=== PATIENT | male | born 1985 | race Caucasian/White ===

== ENCOUNTER 2020-06-07 07:20 | Inpatient (IN) | payer MEDICAID, OTHER ==
[~2020-06-07] VITALS: Ht 170.2 cm; Wt 68.2 kg
[2020-06-07] VITALS (16 sets, daily range): BP systolic 111–158; BP diastolic 61–89
[2020-06-07 08:02] LABS: BASOPHILS # (AUTO) 0.1 X10'3 (0-0.2); BASOPHILS % (AUTO) 0.6 % (0-1); EOSINOPHILS # (AUTO) 0.2 X10'3 (0-0.9); HEMATOCRIT 43.3 % (42.0-52.0); HEMOGLOBIN 15.1 g/dl (14.0-17.9); LYMPHOCYTES # (AUTO) 2.5 X10'3 (1.1-4.8); LYMPHOCYTES % (AUTO) 24.6 % (21-51); MEAN CORPUSCULAR HEMOGLOBIN 33.5 PG (27.0-31.0); MEAN CORPUSCULAR HGB CONC 34.9 g/dL (33.0-36.5); MEAN CORPUSCULAR VOLUME 95.9 FL (78-98); MEAN PLATELET VOLUME 7.7 FL (7.4-10.4); MONOCYTES # (AUTO) 0.9 X10'3 (0-0.9); MONOCYTES % (AUTO) 8.9 % (2-12); NEUTROPHILS # (AUTO) 6.5 X10'3 (1.8-7.7); NEUTROPHILS % (AUTO) 63.9 % (42-75); PLATELET COUNT 315 X10'3 (140-440); RED BLOOD COUNT 4.52 X10'6 (4.70-6.10); RED CELL DISTRIBUTION WIDTH 13.1 % (11.5-14.5); WHITE BLOOD COUNT 10.2 X10'3 (4.5-11.0)
[2020-06-07] MEDS ORDERED: ondansetron/PF 4mg/2ml inj IV ONE (08:05)
[2020-06-07] MEDS ORDERED: normal saline 1000ML IV soln IVB ONE (08:05)
[2020-06-07 08:16] LABS: ALANINE AMINOTRANSFERASE 35 U/L (12-78); ALBUMIN 3.8 G/DL (3.4-5.0); ALKALINE PHOSPHATASE 98 IU/L (46-116); ANION GAP 9 (8-16); ASPARTATE AMINO TRANSFERASE 16 U/L (10-37); BILIRUBIN,TOTAL 0.3 MG/DL (0.1-1.0); BLOOD UREA NITROGEN 14 MG/DL (7-18); BUN/CREATININE RATIO 15.2 (5.4-32.0); CHLORIDE 105 MMOL/L (99-107); CREATININE 0.92 MG/DL (0.60-1.10); GLUCOSE 115 MG/DL (70-104); LIPASE 144 U/L (73-393); POTASSIUM 4.3 MMOL/L (3.5-5.1); SODIUM 139 MMOL/L (135-145); TOTAL CARBON DIOXIDE 25.4 MMOL/L (24-32); TOTAL PROTEIN 7.8 G/DL (6.4-8.2); eGFR > 90 ML/MIN
[2020-06-07 08:20] LABS: CALCIUM 9.2 MG/DL (8.5-10.1)
[2020-06-07] MEDS: morphine 4 MG/ML inj SYRINge IV PRN ×2 (08:41→11:14)
--- NOTE | 2020-06-07 09:03 | NUR ---
TO CT SCAN VIA WHEELCHAIR IN STABLE CONDITION.
[2020-06-07 09:22] LABS: CLARITY,URINE CLEAR (Clear); COLOR,URINE YELLOW (Yellow); GLUCOSE, URINE NEGATIVE (Neg); KETONES,URINE NEGATIVE (Neg); LEUKOCYTE ESTERASE ,URINE NEGATIVE (Neg); NITRITES, URINE NEGATIVE (Neg); OCCULT BLOOD,URINE NEGATIVE (Neg); PH,URINE 8.5 (4.8-8.0); PROTEIN,URINE NEGATIVE (Neg); UROBILINOGEN,URINE 0.2 E.U/dL (0.2-1.0)
[2020-06-07 09:27] LABS: UA COLLECTION TYPE CLN CATCH MIDSTREAM
[2020-06-07] MEDS ORDERED: nicotine 21mg patch - 24 hr TD ONE (09:45)
[2020-06-07] MEDS ORDERED: LORazepam 2 mg/ml vial IV ONE (09:45)
--- NOTE | 2020-06-07 09:56 | NUR ---
recevied call from operating room ,pt is going for sx at 1300 or 1400 ,surgeon dr dhillon.
[2020-06-07] MEDS ORDERED: ringers solution, lacted 1,000 ML IV ONE (10:05)
[2020-06-07] MEDS ORDERED: potassium CL 10mEq/100ml bag 100 ML IV PRN ×2 (10:10)
[2020-06-07] MEDS ORDERED: magnesium Cl slow-release 64mg tablet PO PRN (10:10)
[2020-06-07] MEDS ORDERED: acetaminophen 325mg tablet PO PRN (10:10)
[2020-06-07] MEDS ORDERED: magnesium 4gm in 100ml NS 100 ML IV PRN (10:10)
[2020-06-07] MEDS ORDERED: potassium Cl 20 mEq SR tablet PO PRN ×2 (10:10)
[2020-06-07] MEDS ORDERED: ondansetron/PF 4mg/2ml inj IV PRN ×3 (10:10→14:30)
[2020-06-07] MEDS ORDERED: magnesium 2GM in 50ml NS 50 ML IV PRN (10:10)
--- NOTE | 2020-06-07 11:12 | NUR ---
pt ate last at 209906-06-20
[2020-06-07 11:30] LABS: H PYLORI ANTIBODY NEGATIVE (Neg)
--- NOTE | 2020-06-07 11:55 | NUR ---
romana rn spoke to [facility] pharmacist to clarify the iv compattability of ciprofloxacin and lactate ringer as per [facility] pharmacist they are compatable.
--- NOTE | 2020-06-07 12:15 | NUR ---
received report from FACUNDO Velasco. awaiting patient arrival.
[2020-06-07] MEDS ORDERED: PANT40TA54 PO (12:25)
[2020-06-07] MEDS ORDERED: IBUP-1985 PO (12:25)
[2020-06-07] MEDS ORDERED: metroNIDAZOLE-Flagyl 500mg/NS 100 ML IV ONE (12:30)
[2020-06-07] MEDS ORDERED: ciprofloxacin lact 400MG/200ML 200 ML IV ONE (12:31)
--- NOTE | 2020-06-07 12:41 | NUR ---
patient arrived to the floor. no complaints. patient getting in shower now.
[2020-06-07] MEDS: normal saline 1000ml 1,000 ML IV SCH ×2 (12:48→18:18)
[2020-06-07] MEDS ORDERED: morphine 2 MG/ML inj. syringe IV PRN ×3 (13:00→17:50)
[2020-06-07] MEDS ORDERED: ringers solution, lacted 1,000 ML IV SCH ×2 (13:00→14:30)
[2020-06-07] MEDS ORDERED: proCHLORperazine 10 MG/2 ml inj IV PRN ×2 (13:00→14:30)
[2020-06-07] MEDS ORDERED: morphine 4 MG/ML inj SYRINge IV PRN ×2 (13:00→14:30)
[2020-06-07] MEDS ORDERED: meperidine/PF 25mg/ml syringe IV PRN ×6 (13:00→14:30)
[2020-06-07] MEDS: morphine 2 MG/ML inj. syringe IV PRN ×2 (13:13→17:21)
--- NOTE | 2020-06-07 14:05 | NUR ---
Report given to FACUNDO Guevara in [facility], who will perform accucheck upon pt's arrival preop. FACUNDO Craig notified.
[2020-06-07] MEDS ORDERED: glycopyrrolate 0.2mg/ml inj ONE (14:22)
[2020-06-07] MEDS ORDERED: dexamethasone sod phosphate 10mg/ml inj ONE (14:22)
[2020-06-07] MEDS ORDERED: BUPIVAcaine/PF 2.5 mg/ml (0.25%) 30ml vial ONE (14:22)
[2020-06-07] MEDS ORDERED: LIDOcaine 1% 30ml preserv. free vial ONE (14:22)
[2020-06-07] MEDS ORDERED: neostigmine methylsulfate 1 MG/ML 10ml vial ONE (14:22)
[2020-06-07] MEDS ORDERED: ondansetron/PF 4mg/2ml inj ONE (14:22)
[2020-06-07] MEDS ORDERED: sevoflurane 250ml liquid IH ONE (14:22)
[2020-06-07] MEDS ORDERED: fentaNYL /PF 50mcg/ml 5ml ampule ONE (14:30)
[2020-06-07] MEDS ORDERED: midazolam 2 mg/2 ml injection ONE (14:30)
[2020-06-07] MEDS ORDERED: rocuronium 10mg/ml inj IV ONE (14:39)
[2020-06-07] MEDS ORDERED: propofol inj 20 ML IV ONE (14:39)
[2020-06-07] MEDS ORDERED: ketorolac trometh. 30mg/ml inj. ONE (14:39)
[2020-06-07] MEDS ORDERED: LIDOcaine 2% (20mg/ml) 5ml vial ONE (14:40)
--- NOTE | 2020-06-07 15:24 | NUR ---
Received from OR via [facility] , accompanied by Anesthesiologist NIDHI and report given by Anesthesiolgist. PATIENT WITH 22G PIV IN RIGHT UE RUNNING LR AT 100. DENIES PAIN. 3 ABDOMINAL LAP SITES PRESENT THAT ARE ALL CDI. Addendum: 06/07/20 at 1534 by Jonathan Galeano RN, RN Amended: Links added.
[2020-06-07] MEDS ORDERED: magnesium hydroxide 30ml (MOM) UD suspension PO ONE (15:35)
--- NOTE | 2020-06-07 16:08 | NUR ---
received report from FACUNDO lamar. awaiting patient arrival.
--- NOTE | 2020-06-07 16:14 | NUR ---
ALL CRITERIA FOR TRANSFER TO THE FLOOR HAS BEEN ACHIEVED. REPORT GIVEN AND ALL QUESTIONS ANSWERED, VSS. BED LOW 2 RAILS UP, CALL LIGHT PRESENT AND PATIENT HOOKED UP TO ALL LINES AND VSS. PATIENTS RN PRESENT TO ACCEPT CARE. FACUNDO SULLIVAN AWARE PATIENT HAS ARRIVED. VSS. DENIES PAIN. PHONE DELIVERED TO ROOM AND HANDED TO PATIENT. Addendum: 06/07/20 at 1625 by Jonathan Ramirez - FACUNDO LOREDO Amended: Links added.
--- NOTE | 2020-06-07 16:15 | NUR ---
patient arrived to floor. VSS. no complaints. Addendum: 06/07/20 at 1635 by Kiara Camacho RN lap sites with bandaids. CDI.
--- NOTE | 2020-06-07 18:21 | NUR ---
Problems reprioritized. Patient report given, questions answered & plan of care reviewed with FACUNDO Story.
--- NOTE | 2020-06-07 18:41 | NUR ---
Patient in room [facility]. I have received report from FACUNDO Craig and had the opportunity to ask questions and assume patient care.
[2020-06-07] MEDS: K and/or MAG REPLACEMENT MC SCH (19:29)
[2020-06-07] MEDS: lactobacillus rhamnosus 10,000 MMU CELLS/CAPSULE PO SCH (19:56)
[2020-06-07] MEDS ORDERED: ciprofloxacin lact 400MG/200ML 200 ML IV SCH (20:00)
[2020-06-07] MEDS ORDERED: HYDROcodone/acetaminophen 5mg/325mg tablet PO PRN (21:25)
[2020-06-07] MEDS ORDERED: HYDROcodone/acetaminophen 10/325mg tab PO PRN (21:25)
[2020-06-07] MEDS ORDERED: Melatonin 3mg tablet PO SCH (21:30)
[2020-06-07] MEDS: HYDROmorphone inj. 0.5 MG/0.5 ML DISP.SYRIN IV PRN (22:00)
[2020-06-08] MEDS ORDERED: metroNIDAZOLE-Flagyl 500mg/NS 100 ML IV SCH
[2020-06-08 00:15] VITALS: BP 96/63
[2020-06-08] MEDS ORDERED: Melatonin 3mg tablet PO PRN (04:20)
[2020-06-08 05:00] VITALS: BP 132/82
[2020-06-08] MEDS: normal saline 1000ml 1,000 ML IV SCH (05:23)
[2020-06-08 05:29] LABS: ALBUMIN 3.2 G/DL (3.4-5.0); ANION GAP 6 (8-16); BLOOD UREA NITROGEN 10 MG/DL (7-18); BUN/CREATININE RATIO 13.2 (5.4-32.0); CALCIUM 8.4 MG/DL (8.5-10.1); CHLORIDE 106 MMOL/L (99-107); CREATININE 0.76 MG/DL (0.60-1.10); GLUCOSE 128 MG/DL (70-104); MAGNESIUM 2.3 MG/DL (1.5-2.4); POTASSIUM 4.5 MMOL/L (3.5-5.1); SODIUM 138 MMOL/L (135-145); TOTAL CARBON DIOXIDE 26.3 MMOL/L (24-32); eGFR > 90 ML/MIN
[2020-06-08] MEDS: HYDROmorphone inj. 0.5 MG/0.5 ML DISP.SYRIN IV PRN (05:32)
[2020-06-08 05:40] LABS: BASOPHILS % (AUTO) 0.1 % (0-1); EOSINOPHILS % (AUTO) 0 % (0-6); HEMATOCRIT 41.9 % (42.0-52.0); HEMOGLOBIN 14.1 g/dl (14.0-17.9); LYMPHOCYTES # (AUTO) 1.1 X10'3 (1.1-4.8); LYMPHOCYTES % (AUTO) 8.4 % (21-51); MEAN CORPUSCULAR HEMOGLOBIN 32.8 PG (27.0-31.0); MEAN CORPUSCULAR HGB CONC 33.6 g/dL (33.0-36.5); MEAN CORPUSCULAR VOLUME 97.9 FL (78-98); MEAN PLATELET VOLUME 8.2 FL (7.4-10.4); MONOCYTES # (AUTO) 0.3 X10'3 (0-0.9); MONOCYTES % (AUTO) 2.4 % (2-12); NEUTROPHILS # (AUTO) 12.2 X10'3 (1.8-7.7); NEUTROPHILS % (AUTO) 89.1 % (42-75); PLATELET COUNT 319 X10'3 (140-440); RED BLOOD COUNT 4.28 X10'6 (4.70-6.10); RED CELL DISTRIBUTION WIDTH 13.3 % (11.5-14.5); WHITE BLOOD COUNT 13.7 X10'3 (4.5-11.0)
--- NOTE | 2020-06-08 05:51 | NUR ---
Educate pt regarding importance of ambulation for early recovery after surgery. Pt refuses at this time and states that he is in a lot of pain. Pt agrees to walk later in the morning.
--- NOTE | 2020-06-08 06:50 | NUR ---
Problems reprioritized. Patient report given, questions answered & plan of care reviewed with FACUNDO Craig.
[2020-06-08 07:30] VITALS: BP 97/41
[2020-06-08] MEDS: K and/or MAG REPLACEMENT MC SCH (07:52)
[2020-06-08] MEDS: lactobacillus rhamnosus 10,000 MMU CELLS/CAPSULE PO SCH (07:53)
[2020-06-08] MEDS ORDERED: OXYC-145 PO (08:35)
[2020-06-08] MEDS ORDERED: oxyCODONE/APAP 10/325mg tablet PO ONE (08:40)
--- NOTE | 2020-06-08 09:19 | NUR ---
Patient stable and appropriate for discharge home. IV removed, all belongings taken from room. New prescription called in to pharmacy by 's office. patient is aware of next due doses on all medications. Discharge instructions and education given and reviewed with patient, all questions answered.
[2020-06-08] MEDS ORDERED: Melatonin 3mg tablet PO SCH (21:00)
== END 2020-06-08 09:30 | disposition home or self-care (01) | DRG 234 ==
LOC: ER 07:20 → ED HOLD 10:09 → SUR 3N 12:26
PROVIDERS: ADMIT Internal Medicine; ATTEND Internal Medicine
PROC: 8E0W4CZ Robotic Assisted Procedure of Trunk Region, Percutaneous Endoscopic Approach (ICD-10-PCS; 2020-06-07)
PROC: 0DTJ4ZZ Resection of Appendix, Percutaneous Endoscopic Approach (ICD-10-PCS; principal; 2020-06-07 14:22)
DX: K35.80 Unspecified acute appendicitis (principal); F12.90 Cannabis use, unspecified, uncomplicated; F17.210 Nicotine dependence, cigarettes, uncomplicated; G89.29 Other chronic pain; K59.09 Other constipation; Z87.442 Personal history of urinary calculi; Z88.0 Allergy status to penicillin
CPT/HCPCS: 36415; 74176; 80048; 80053; 81003; 82948; 83690; 83735; 85025; 86677; 87081; 96374; 99285; A4215; A4618; G0378; J0744; J1100; J1170; J1885; J2001; J2060; J2250; J2270; J2405; J2704; J2710; J3010; J3490; J7030; J7120

== ENCOUNTER 2020-06-29 00:21 | Emergency (ER) | payer MEDICAID ==
[~2020-06-29] VITALS: Ht 170.2 cm; Wt 68.2 kg
[~2020-06-29 00:21] MED LIST: IBUP-1985 PO; OXYC-145 PO; PANT40TA54 PO
[2020-06-29] MEDS ORDERED: normal saline 1000ML IV soln IVB ONE (00:45)
[2020-06-29] MEDS ORDERED: ondansetron/PF 4mg/2ml inj IV ONE (00:45)
[2020-06-29] MEDS ORDERED: iohexol 300mg/ml 100ml inj. ONE (01:01)
[2020-06-29] MEDS: morphine 4 MG/ML inj SYRINge IV PRN ×2 (01:21→01:40)
[2020-06-29 01:22] LABS: BASOPHILS # (AUTO) 0.1 X10'3 (0-0.2); BASOPHILS % (AUTO) 0.9 % (0-1); EOSINOPHILS # (AUTO) 0.3 X10'3 (0-0.9); EOSINOPHILS % (AUTO) 2.2 % (0-6); HEMATOCRIT 45.2 % (42.0-52.0); HEMOGLOBIN 15.8 g/dl (14.0-17.9); LYMPHOCYTES # (AUTO) 4.3 X10'3 (1.1-4.8); LYMPHOCYTES % (AUTO) 37.8 % (21-51); MEAN CORPUSCULAR HEMOGLOBIN 33.7 PG (27.0-31.0); MEAN CORPUSCULAR VOLUME 96.4 FL (78-98); MEAN PLATELET VOLUME 7.9 FL (7.4-10.4); MONOCYTES % (AUTO) 8.5 % (2-12); NEUTROPHILS # (AUTO) 5.8 X10'3 (1.8-7.7); NEUTROPHILS % (AUTO) 50.6 % (42-75); PLATELET COUNT 352 X10'3 (140-440); RED BLOOD COUNT 4.69 X10'6 (4.70-6.10); WHITE BLOOD COUNT 11.4 X10'3 (4.5-11.0)
[2020-06-29 01:40] LABS: ALANINE AMINOTRANSFERASE 54 U/L (12-78); ALBUMIN 3.4 G/DL (3.4-5.0); ALBUMIN/GLOBULIN RATIO 0.7 (1.1-1.5); ALKALINE PHOSPHATASE 100 IU/L (46-116); ANION GAP 15 (8-16); ASPARTATE AMINO TRANSFERASE 19 U/L (10-37); BILIRUBIN,TOTAL 0.3 MG/DL (0.1-1.0); BLOOD UREA NITROGEN 13 MG/DL (7-18); BUN/CREATININE RATIO 10.9 (5.4-32.0); CALCIUM 9.5 MG/DL (8.5-10.1); CHLORIDE 101 MMOL/L (99-107); CREATININE 1.19 MG/DL (0.60-1.10); GLUCOSE 120 MG/DL (70-104); LIPASE 146 U/L (73-393); POTASSIUM 3.5 MMOL/L (3.5-5.1); SODIUM 139 MMOL/L (135-145); TOTAL CARBON DIOXIDE 22.9 MMOL/L (24-32); TOTAL PROTEIN 8.2 G/DL (6.4-8.2); eGFR 69 ML/MIN
[2020-06-29 01:58] LABS: CLARITY,URINE CLEAR (Clear); COLOR,URINE YELLOW (Yellow); GLUCOSE, URINE NEGATIVE (Neg); KETONES,URINE NEGATIVE (Neg); LEUKOCYTE ESTERASE ,URINE NEGATIVE (Neg); NITRITES, URINE NEGATIVE (Neg); OCCULT BLOOD,URINE NEGATIVE (Neg); PROTEIN,URINE NEGATIVE (Neg); UROBILINOGEN,URINE 0.2 E.U/dL (0.2-1.0)
[2020-06-29] MEDS ORDERED: haloperidol lactate 5mg/ml inj IM ONE (02:00)
[2020-06-29 02:02] LABS: UA COLLECTION TYPE CLN CATCH MIDSTREAM
[2020-06-29] MEDS ORDERED: morphine 4 MG/ML inj SYRINge IV ONE (02:15)
[2020-06-29 02:19] LABS: URINE AMPHETAMINE SCREEN NEGATIVE (Neg); URINE BARBITUATE SCREEN NEGATIVE (Neg); URINE BENZODIAZEPINES SCREEN NEGATIVE (Neg); URINE CANNABINOID SCREEN POSITIVE (Neg); URINE COCAINE SCREEN NEGATIVE (Neg); URINE METHADONE SCREEN NEGATIVE (Neg); URINE OPIATE SCREEN POSITIVE (Neg); URINE PHENCYCLIDINE SCREEN NEGATIVE (Neg)
[2020-06-29] MEDS ORDERED: metoclopramide 5 mg/ml inj IV ONE (02:50)
[2020-06-29 04:16] VITALS: BP 112/71
[2020-06-29] MEDS ORDERED: ONDA4TAB6 PO (04:41)
[2020-06-29] MEDS ORDERED: PROC25SU31 RC (04:41)
== END 2020-06-29 05:12 | disposition home or self-care (01) ==
LOC: ER 00:22
DX: R10.84 Generalized abdominal pain (principal); G89.29 Other chronic pain; R11.2 Nausea with vomiting, unspecified; F12.188 Cannabis abuse with other cannabis-induced disorder; F17.200 Nicotine dependence, unspecified, uncomplicated; F14.90 Cocaine use, unspecified, uncomplicated; Z87.442 Personal history of urinary calculi; Z90.89 Acquired absence of other organs; Z88.2 Allergy status to sulfonamides; Z79.899 Other long term (current) drug therapy
CPT/HCPCS: 36415; 74177; 80053; 80305; 81003; 83690; 85025; 96361; 96372; 96374; 96375; 96376; 99285; J1630; J2270; J2405; J2765; J7030; Q9967

== ENCOUNTER 2021-05-07 20:51 | Emergency (ER) | payer MEDICAID, OTHER ==
[~2021-05-07] VITALS: Ht 170.2 cm; Wt 67.6 kg
[~2021-05-07 20:51] MED LIST changes: +ALPR1TAB2 PO; +ESCI20TA39 PO; +HYDR-3686 PO; +HYDR-4353 PO; -IBUP-1985 PO; +NICO-687 TOP; -OXYC-145 PO; -PANT40TA54 PO
[2021-05-07] MEDS ORDERED: fentaNYL/PF 50MCG/1 ML 2ML syringe IV ONE (21:10)
[2021-05-07] MEDS ORDERED: LIDOcaine 1% 30ml preserv. free vial IJ ONE (21:25)
[2021-05-07] MEDS ORDERED: LORazepam 2 mg/ml vial IV ONE (21:50)
[2021-05-07] MEDS ORDERED: PER5325T PO (22:46)
[2021-05-07] MEDS ORDERED: CEPH-585 PO (22:46)
[2021-05-07] MEDS ORDERED: oxyCODONE/APAP 10/325mg tablet PO ONE (22:50)
[2021-05-08 01:50] VITALS: BP 127/86
== END 2021-05-08 01:52 | disposition home or self-care (01) ==
LOC: ER 20:52
DX: S62.635B Displaced fracture of distal phalanx of left ring finger, initial encounter for open fracture (principal); F12.90 Cannabis use, unspecified, uncomplicated; F11.90 Opioid use, unspecified, uncomplicated; Z87.442 Personal history of urinary calculi; Z88.0 Allergy status to penicillin; Z79.2 Long term (current) use of antibiotics; Z79.899 Other long term (current) drug therapy; Z90.49 Acquired absence of other specified parts of digestive tract; W34.00XA Accidental discharge from unspecified firearms or gun, initial encounter; Y93.89 Activity, other specified; Y92.89 Other specified places as the place of occurrence of the external cause; Y99.8 Other external cause status
CPT/HCPCS: 13132; 73130; 96374; 96375; 99285; J2060; J3010; 12002; 99284

== ENCOUNTER 2021-05-27 15:29 | Emergency (ER) | payer SELFPAY ==
[~2021-05-27] VITALS: Ht 170.2 cm; Wt 67.6 kg
[~2021-05-27 15:29] MED LIST changes: +CEPH-585 PO; +PER5325T PO
[2021-05-27 16:35] VITALS: BP 134/93
[2021-05-27] MEDS ORDERED: HYDROcodone/acetaminophen 10/325mg tab PO ONE (16:40)
[2021-05-27] MEDS ORDERED: ondansetron 4mg rapidly disintigrating tab PO ONE (16:40)
[2021-05-27] MEDS ORDERED: ONDA4TAB6 PO (17:43)
[2021-05-27] MEDS ORDERED: OXYC-150 PO (17:43)
== END 2021-05-27 18:10 | disposition home or self-care (01) ==
LOC: ER 15:31
DX: M79.645 Pain in left finger(s) (principal); S61.215D Laceration without foreign body of left ring finger without damage to nail, subsequent encounter; Z48.02 Encounter for removal of sutures; X58.XXXD Exposure to other specified factors, subsequent encounter; F12.90 Cannabis use, unspecified, uncomplicated; Z90.89 Acquired absence of other organs; Z79.899 Other long term (current) drug therapy; Z88.0 Allergy status to penicillin
CPT/HCPCS: 99283

== ENCOUNTER 2022-08-27 16:40 | Emergency (ER) | payer MEDICAID ==
[~2022-08-27] VITALS: Ht 170.2 cm; Wt 68.2 kg
[2022-08-27 16:45] VITALS: BP 125/72
[2022-08-27] MEDS ORDERED: ONDA4TAB12 PO (17:07)
[2022-08-27] MEDS ORDERED: HYDR-3965 PO (17:07)
[2022-08-27] MEDS ORDERED: CLIN-142 PO (17:07)
[2022-08-27] MEDS ORDERED: ondansetron 4mg rapidly disintigrating tab PO ONE (17:20)
[2022-08-27] MEDS ORDERED: clindamycin 150mg capsule PO ONE (17:20)
[2022-08-27] MEDS ORDERED: HYDROcodone/acetaminophen 10/325mg tab PO ONE (17:20)
== END 2022-08-27 17:41 | disposition home or self-care (01) ==
LOC: ER 16:41
DX: K04.7 Periapical abscess without sinus (principal); F12.90 Cannabis use, unspecified, uncomplicated; F14.90 Cocaine use, unspecified, uncomplicated; Z87.442 Personal history of urinary calculi; Z90.49 Acquired absence of other specified parts of digestive tract; Z88.0 Allergy status to penicillin; Z79.899 Other long term (current) drug therapy
CPT/HCPCS: 99284

== ENCOUNTER 2024-07-21 13:46 | Emergency (ER) | payer MEDICAID ==
[~2024-07-21] VITALS: Ht 170.2 cm; Wt 42.6 kg
[~2024-07-21 13:46] MED LIST changes: -ALPR1TAB2 PO; -CEPH-585 PO; -ESCI20TA39 PO; -HYDR-3686 PO; -HYDR-4353 PO; -NICO-687 TOP; +ONDA-243 PO; -PER5325T PO
[2024-07-21 14:09] LABS: BILIRUBIN,URINE NEGATIVE (Neg); CLARITY,URINE CLEAR (Clear); COLOR,URINE YELLOW (Yellow); GLUCOSE, URINE NEGATIVE (Neg); KETONES,URINE NEGATIVE (Neg); LEUKOCYTE ESTERASE ,URINE NEGATIVE (Neg); NITRITES, URINE NEGATIVE (Neg); OCCULT BLOOD,URINE LARGE (Neg); PROTEIN,URINE NEGATIVE (Neg); UROBILINOGEN,URINE 0.2 E.U/dL (0.2-1.0)
[2024-07-21 14:19] LABS: UA COLLECTION TYPE CLN CATCH MIDSTREAM
[2024-07-21 14:20] LABS: BACTERIA,URINE NONE SEEN /HPF (Neg); RBC,URINE 20-50 /HPF (0-2); SQUAMOUS EPITHELIAL CELL,UR NONE SEEN /LPF (FEW); WBC,URINE 0-4 /HPF (0-4)
[2024-07-21 14:21] LABS: MUCUS STRANDS NONE SEEN /LPF (Neg)
[2024-07-21 14:25] LABS: BASOPHILS # (AUTO) 0.1 X10'3 (0-0.2); BASOPHILS % (AUTO) 0.8 % (0-1); EOSINOPHILS # (AUTO) 0.6 X10'3 (0-0.9); EOSINOPHILS % (AUTO) 5.6 % (0-6); HEMATOCRIT 43.1 % (42.0-52.0); HEMOGLOBIN 14.7 g/dl (14.0-17.9); LYMPHOCYTES # (AUTO) 3.1 X10'3 (1.1-4.8); LYMPHOCYTES % (AUTO) 27.1 % (21-51); MEAN CORPUSCULAR HEMOGLOBIN 33.5 PG (27.0-31.0); MEAN CORPUSCULAR VOLUME 98.5 FL (78-98); MEAN PLATELET VOLUME 7.4 FL (7.4-10.4); MONOCYTES # (AUTO) 0.8 X10'3 (0-0.9); MONOCYTES % (AUTO) 6.7 % (2-12); NEUTROPHILS # (AUTO) 6.8 X10'3 (1.8-7.7); NEUTROPHILS % (AUTO) 59.8 % (42-75); PLATELET COUNT 297 X10'3 (140-440); RED BLOOD COUNT 4.38 X10'6 (4.70-6.10); RED CELL DISTRIBUTION WIDTH 13.2 % (11.5-14.5); WHITE BLOOD COUNT 11.3 X10'3 (4.5-11.0)
[2024-07-21] MEDS ORDERED: sildenafil citrate 20mg tablet PO SCH (14:40)
[2024-07-21 14:43] LABS: ALANINE AMINOTRANSFERASE 15 U/L (12-78); ALBUMIN 3.5 G/DL (3.4-5.0); ALBUMIN/GLOBULIN RATIO 0.9 (1.1-1.5); ALKALINE PHOSPHATASE 77 IU/L (46-116); ANION GAP 8 (8-16); ASPARTATE AMINO TRANSFERASE 17 U/L (10-37); BILIRUBIN,TOTAL 0.3 MG/DL (0.1-1.0); BLOOD UREA NITROGEN 19 MG/DL (7-18); BUN/CREATININE RATIO 18.3 (10.0-20.0); CALCIUM 8.9 MG/DL (8.5-10.1); CHLORIDE 105 MMOL/L (99-107); CREATININE 1.04 MG/DL (0.60-1.10); GLUCOSE 98 MG/DL (70-104); LIPASE 73 U/L (16-77); POTASSIUM 4.6 MMOL/L (3.5-5.1); SODIUM 139 MMOL/L (135-145); TOTAL CARBON DIOXIDE 26.5 MMOL/L (24-32); TOTAL PROTEIN 7.2 G/DL (6.4-8.2); eCRCL 57 ML/MIN; eGFR 79 ML/MIN
[2024-07-21] MEDS: ondansetron/PF 4mg/2ml inj IV ONE (15:03)
[2024-07-21] MEDS: meperidine/PF 100mg/ml syringe IV STA (15:03)
[2024-07-21] MEDS: normal saline 1000ML IV soln IVB ONE (15:09)
[2024-07-21] MEDS: sildenafil citrate 20mg tablet PO ONE (15:10)
[2024-07-21] MEDS ORDERED: meperidine/PF 50mg/ml syringe IV ONE (15:50)
[2024-07-21] MEDS: ketorolac trometh 30MG/ML vial 30 MG/ML VIAL IV ONE (16:02)
[2024-07-21] MEDS: meperidine/PF 25mg/ml syringe IV ONE (16:03)
[2024-07-21] MEDS ORDERED: TADA5TAB2 PO (17:34)
[2024-07-21] MEDS ORDERED: IBUP-1984 PO (17:36)
[2024-07-21] MEDS ORDERED: HYDR-3965 PO (17:36)
[2024-07-21] MEDS: HYDROcodone/acetaminophen 10/325mg tab PO ONE (17:40)
[2024-07-21] MEDS: HYDROmorphone 1 mg/ml syringe IM ONE (18:46)
[2024-07-21 18:50] VITALS: PULSE 73; TEMP 98.3
[2024-07-21 19:14] VITALS: BP 114/76; RESP 18; O2SAT 98
== END 2024-07-21 18:53 | disposition home or self-care (01) ==
LOC: ER 13:46
DX: N13.9 Obstructive and reflux uropathy, unspecified (principal); N23 Unspecified renal colic; F12.90 Cannabis use, unspecified, uncomplicated; F14.90 Cocaine use, unspecified, uncomplicated; Z88.0 Allergy status to penicillin; Z87.442 Personal history of urinary calculi; Z90.49 Acquired absence of other specified parts of digestive tract
CPT/HCPCS: 36415; 74176; 80053; 81001; 83690; 85025; 96361; 96372; 96374; 96375; 96376; 99285; J1171; J1885; J2175; J2405; J7030

== ENCOUNTER 2024-07-22 13:24 | Inpatient (IN) | payer MEDICAID ==
[~2024-07-22] VITALS: Ht 170.2 cm; Wt 67.5 kg
[~2024-07-22 13:24] MED LIST changes: +HYDR-3965 PO; +IBUP-1984 PO; +TADA5TAB2 PO
[2024-07-22 14:36] LABS: BASOPHILS # (AUTO) 0.1 X10'3 (0-0.2); BASOPHILS % (AUTO) 0.7 % (0-1); EOSINOPHILS # (AUTO) 0.5 X10'3 (0-0.9); EOSINOPHILS % (AUTO) 4.7 % (0-6); HEMATOCRIT 41.5 % (42.0-52.0); HEMOGLOBIN 14.3 g/dl (14.0-17.9); LYMPHOCYTES # (AUTO) 3.1 X10'3 (1.1-4.8); LYMPHOCYTES % (AUTO) 28.7 % (21-51); MEAN CORPUSCULAR HEMOGLOBIN 33.8 PG (27.0-31.0); MEAN CORPUSCULAR HGB CONC 34.4 g/dL (33.0-36.5); MEAN CORPUSCULAR VOLUME 98.2 FL (78-98); MEAN PLATELET VOLUME 7.5 FL (7.4-10.4); MONOCYTES # (AUTO) 0.7 X10'3 (0-0.9); NEUTROPHILS # (AUTO) 6.6 X10'3 (1.8-7.7); NEUTROPHILS % (AUTO) 59.9 % (42-75); PLATELET COUNT 260 X10'3 (140-440); RED BLOOD COUNT 4.23 X10'6 (4.70-6.10); RED CELL DISTRIBUTION WIDTH 13.1 % (11.5-14.5); WHITE BLOOD COUNT 10.9 X10'3 (4.5-11.0)
[2024-07-22 14:41] LABS: ALANINE AMINOTRANSFERASE 16 U/L (12-78); ALBUMIN 3.5 G/DL (3.4-5.0); ALBUMIN/GLOBULIN RATIO 0.9 (1.1-1.5); ALKALINE PHOSPHATASE 75 IU/L (46-116); ANION GAP 8 (8-16); ASPARTATE AMINO TRANSFERASE 17 U/L (10-37); BILIRUBIN,TOTAL 0.4 MG/DL (0.1-1.0); BLOOD UREA NITROGEN 14 MG/DL (7-18); BUN/CREATININE RATIO 14.9 (10.0-20.0); CALCIUM 8.9 MG/DL (8.5-10.1); CHLORIDE 105 MMOL/L (99-107); CREATININE 0.94 MG/DL (0.60-1.10); GLUCOSE 88 MG/DL (70-104); LIPASE 33 U/L (16-77); SODIUM 140 MMOL/L (135-145); TOTAL CARBON DIOXIDE 27.2 MMOL/L (24-32); TOTAL PROTEIN 7.4 G/DL (6.4-8.2); eCRCL 98 ML/MIN; eGFR 89 ML/MIN
[2024-07-22 16:40] LABS: BILIRUBIN,URINE NEGATIVE (Neg); CLARITY,URINE CLOUDY (Clear); COLOR,URINE YELLOW (Yellow); GLUCOSE, URINE NEGATIVE (Neg); KETONES,URINE NEGATIVE (Neg); LEUKOCYTE ESTERASE ,URINE NEGATIVE (Neg); NITRITES, URINE NEGATIVE (Neg); OCCULT BLOOD,URINE MODERATE (Neg); PROTEIN,URINE NEGATIVE (Neg); UROBILINOGEN,URINE 0.2 E.U/dL (0.2-1.0)
[2024-07-22 16:42] LABS: UA COLLECTION TYPE CLN CATCH MIDSTREAM
[2024-07-22 16:45] LABS: AMORPHOUS PHOSPHATES 1+; BACTERIA,URINE NONE SEEN /HPF (Neg); MUCUS STRANDS FEW /LPF (Neg); RBC,URINE 20-50 /HPF (0-2); SQUAMOUS EPITHELIAL CELL,UR NONE SEEN /LPF (FEW); WBC,URINE 0-4 /HPF (0-4)
[2024-07-22 18:00] VITALS: BP 121/66; PULSE 85; RESP 14; TEMP 98.2; O2SAT 96
[2024-07-22] MEDS: morphine 4 MG/ML inj SYRINge IV ONE (18:35)
[2024-07-22] MEDS: ondansetron/PF 4mg/2ml inj IV ONE (18:36)
[2024-07-22] MEDS: ketorolac trometh 15mg/ml vial 15 MG/ML ML IV ONE (18:36)
[2024-07-22] MEDS ORDERED: metoclopramide 5 mg/ml inj IV PRN (19:00)
[2024-07-22] MEDS ORDERED: magnesium Cl slow-release 64mg tablet PO PRN (19:00)
[2024-07-22] MEDS ORDERED: potassium Cl 40MEQ/1/2NS 520ml 520 ML IV PRN (19:00)
[2024-07-22] MEDS ORDERED: magnesium sulf-water 2g/50mL 50 ML IV PRN (19:00)
[2024-07-22] MEDS ORDERED: magnesium sulf-water 4G/100mL 100 ML IV PRN (19:00)
[2024-07-22] MEDS ORDERED: ondansetron/PF 4mg/2ml inj IV PRN (19:00)
[2024-07-22] MEDS ORDERED: potassium Cl 20 mEq SR tablet PO PRN ×2 (19:00)
[2024-07-22] MEDS ORDERED: acetaminophen 325mg tablet PO PRN (19:00)
[2024-07-22] MEDS ORDERED: morphine 2 MG/ML inj. syringe IV PRN (19:00)
[2024-07-22] MEDS: normal saline 1000ml 1,000 ML IV SCH (19:33)
[2024-07-22] MEDS: docusate sod 100mg capsule PO SCH (20:00)
[2024-07-22] MEDS: K and/or MAG REPLACEMENT MC SCH (20:00)
[2024-07-22] MEDS: morphine 2 MG/ML inj. syringe IV PRN (21:37)
[2024-07-22 22:00] VITALS: BP 115/67; PULSE 80; RESP 14; TEMP 98.3; O2SAT 95
[2024-07-22] MEDS: HYDROmorphone/PF 0.2 MG/ML SYRINGE IV PRN (22:55)
[2024-07-23] MEDS: Melatonin 3mg tablet PO PRN (00:13)
[2024-07-23 05:57] LABS: BASOPHILS # (AUTO) 0.1 X10'3 (0-0.2); BASOPHILS % (AUTO) 0.8 % (0-1); EOSINOPHILS # (AUTO) 0.6 X10'3 (0-0.9); EOSINOPHILS % (AUTO) 7.8 % (0-6); HEMOGLOBIN 13.2 g/dl (14.0-17.9); LYMPHOCYTES # (AUTO) 2.9 X10'3 (1.1-4.8); LYMPHOCYTES % (AUTO) 36.2 % (21-51); MEAN CORPUSCULAR HEMOGLOBIN 33.8 PG (27.0-31.0); MEAN CORPUSCULAR HGB CONC 34.6 g/dL (33.0-36.5); MEAN CORPUSCULAR VOLUME 97.7 FL (78-98); MEAN PLATELET VOLUME 7.6 FL (7.4-10.4); MONOCYTES # (AUTO) 0.6 X10'3 (0-0.9); MONOCYTES % (AUTO) 7.5 % (2-12); NEUTROPHILS # (AUTO) 3.8 X10'3 (1.8-7.7); NEUTROPHILS % (AUTO) 47.7 % (42-75); PLATELET COUNT 250 X10'3 (140-440); RED BLOOD COUNT 3.89 X10'6 (4.70-6.10); RED CELL DISTRIBUTION WIDTH 13.4 % (11.5-14.5)
[2024-07-23 06:00] VITALS: BP 106/55; PULSE 78; RESP 18; TEMP 98.6; O2SAT 95
[2024-07-23 06:19] LABS: ALBUMIN 2.8 G/DL (3.4-5.0); ANION GAP 7 (8-16); BLOOD UREA NITROGEN 16 MG/DL (7-18); BUN/CREATININE RATIO 17.2 (10.0-20.0); CALCIUM 8.3 MG/DL (8.5-10.1); CHLORIDE 108 MMOL/L (99-107); CREATININE 0.93 MG/DL (0.60-1.10); GLUCOSE 105 MG/DL (70-104); SODIUM 141 MMOL/L (135-145); TOTAL CARBON DIOXIDE 26.2 MMOL/L (24-32); eCRCL 99 ML/MIN; eGFR 90 ML/MIN
[2024-07-23 08:00] VITALS: RESP 18; O2SAT 96
[2024-07-23 10:00] VITALS: BP 112/61; PULSE 54; RESP 16; TEMP 97.8; O2SAT 98
[2024-07-23] MEDS: HYDROcodone/acetaminophen 5mg/325mg tablet PO PRN (11:48)
[2024-07-23 12:52] VITALS: RESP 18
== END 2024-07-23 15:05 | disposition left against medical advice (07) | DRG 468 ==
LOC: ER 13:25 → ED HOLD 19:03 → SUR 3N 21:50
PROVIDERS: ADMIT Internal Medicine; ATTEND Internal Medicine
DX: N13.9 Obstructive and reflux uropathy, unspecified (principal); Z53.21 Procedure and treatment not carried out due to patient leaving prior to being seen by health care provider; Z90.49 Acquired absence of other specified parts of digestive tract; N20.1 Calculus of ureter
CPT/HCPCS: 36415; 74018; 80048; 80053; 81001; 83690; 83735; 85025; 99285; G0378; J1171; J1885; J2270; J2405; J7030